=== PATIENT | female | born 1975 | race Caucasian/White ===

== ENCOUNTER → 2021-03-09 14:07 | Outpatient (CLI) | payer OTHER, SELFPAY ==
--- NOTE | 2021-03-09 | DI.MRI.S_ITS ---
PROCEDURE: MR LUMBAR SPINE WO CON INDICATIONS: Radiculopathy, lumbar region TECHNIQUE: Noncontrast sagittal T1 spin echo and T2 fast echo, sagittal STIR, axial T1 and T2 fast spin echo through the lumbar spine. In cases with scoliosis, additional coronal T2 fast spin echo may be performed. COMPARISON: [facility], MR, L-SPINE WITHOUT CONTRAST, 05/13/2014, 16:46. [facility], MR, L-SPINE WITHOUT CONTRAST, 01/06/2018, 8:20. FINDINGS: Image quality: Excellent. Alignment and Curvature: There is normal bony alignment. Convex left curvature of the lumbar spine. Bone Marrow: Marrow is of normal overall signal. No acute vertebral body compression fractures. Spinal Cord: Conus medullaris terminates at the L1 level. Visualized cord demonstrates normal signal and size. Paraspinous Soft Tissues: No paravertebral masses. T12-L1: Normal appearance. L1-L2: Normal appearance. L2-L3: Loss of disc signal. Mild, diffuse disc bulge. No central stenosis. No neural foraminal narrowing. No neural compression. L3-L4: Loss of disc signal. Mild to moderate diffuse disc bulge. Mild bilateral facet hypertrophy. Mild narrowing of the central canal. No neural foraminal narrowing. No neural compression L4-L5: Loss of disc signal. Mild, diffuse disc bulge. Moderate bilateral facet hypertrophy. Mild narrowing of the central canal. Mild bilateral neural foraminal narrowing. No neural compression. L5-S1: Loss of disc signal. Mild, diffuse disc bulge. Mild right moderate left facet hypertrophy. No central stenosis. No neural foraminal narrowing. No neural compression. IMPRESSION: 1. Multilevel degenerative disc disease. 2. Multilevel facet arthropathy. 3. No severe central canal narrowing. 4. No severe neural foraminal narrowing. 5. No neural compression Dictated by: Denise Mauricio MD, PhD on 03/09/2021 at 17:51 Approved by: Denise Mauricio MD, PhD on 03/09/2021 at 17:54
== END ==
PROVIDERS: Family Provider Internal Medicine Rheumatology; PCP Family Medicine; Referring Provider Physical Medicine & Rehabilitation; Visit Provider Physical Medicine & Rehabilitation
DX: M51.16 Intervertebral disc disorders with radiculopathy, lumbar region (principal); M51.17 Intervertebral disc disorders with radiculopathy, lumbosacral region; M47.26 Other spondylosis with radiculopathy, lumbar region; M47.27 Other spondylosis with radiculopathy, lumbosacral region
CPT/HCPCS: 72148

== ENCOUNTER → 2022-04-23 15:09 | Outpatient (CLI) | payer OTHER, SELFPAY ==
[2022-04-23 16:18] LABS: COVID19 -Nasal RAPID Negative (Negative)
== END ==
PROVIDERS: Family Provider Internal Medicine Rheumatology; PCP Family Medicine; Visit Provider Surgery
DX: Z20.822 Contact with and (suspected) exposure to COVID-19 (principal); Z01.812 Encounter for preprocedural laboratory examination
CPT/HCPCS: 87635; C9803

== ENCOUNTER 2022-04-26 12:14 | Day surgery (SDC) | payer OTHER, SELFPAY ==
--- NOTE | 2022-04-26 | PATH_ITS ---
[facility] Accession Number: [id number] . 01 Material submitted: . PART A: duodenum - DUODNEAL PART B: stomach - ANTRUM PART C: rectosigmoid junction - RECTOSIGMOID POLYP . 01 Diagnosis: A. Duodenum, Biopsy: Small bowel mucosa with no diagnostic abnormality. Negative for active inflammation, intraepithelial lymphocytosis, dysplasia, and malignancy. . B. Stomach, Antrum, Biopsy: Antral mucosa with mild chronic gastritis. Negative for Helicobacter by immunohistochemistry. Negative for intestinal metaplasia. Negative for dysplasia and malignancy. . C. Rectosigmoid Colon, Polyp, Biopsy: Hyperplastic polyp with features of mucosal prolapse. Additional levels were examined. Negative for dysplasia and malignancy. [facility] 04/29/2022 1532 Local . 01 Electronically signed: . Luz Maria Muro MD, Pathologist NPI- [id number] . 01 Gross description: . Part A: DUODNEAL: Received in formalin are multiple fragment(s) of olivo, soft tissue measuring 0.1 x 0.1 x 0.1 cm to 0.2 x 0.2 x 0.2 cm submitted entirely in 1 cassette(s) Part B: ANTRUM: Received in formalin is 1 fragment(s) of olivo, soft tissue measuring 0.1 x 0.1 x 0.1 cm submitted entirely in 1 cassette(s) Part C: RECTOSIGMOID POLYP: Received in formalin is 1 fragment(s) of olivo, soft tissue measuring 0.2 x 0.2 x 0.2 cm submitted entirely in 1 cassette(s) /[facility] 04/27/2022 1903 Local . 01 Microscopic: . B. An immunohistochemical stain was performed to evaluate for Helicobacter organisms and is negative. The control stain showed appropriate reactivity. . * This test was developed and its performance characteristics determined by [facility]. It has not been cleared or approved by the U.S. Food and Drug Administration. The FDA has determined that such clearance or approval is not necessary. This test is used for clinical purposes. It should not be regarded as investigational or for research. . 01 Pathologist provided ICD-10: D50.9, K63.5 . 01 CPT . 656400, 765520, 045270, F75793 Specimen Comment: A courtesy copy of this report has been sent to [phone] Performed at: 01 [facility] [address] [place] [address], [place], [place] [id number] MD Wade Briones MD Phone: [phone]
[2022-04-26 12:55] VITALS: BP 160/88; PULSE 80; RESP 16; TEMP 37.1; O2SAT 100; BMI 24.3
[2022-04-26] MEDS: SODIUM CHLORIDE 0.9% 1,000 ML 84 ML IV (13:20)
--- NOTE | 2022-04-26 15:00 | PM.HP.1 ---
History of Present Illness History of Present Illness Date Patient Seen: 04/26/22 Time Patient Seen: 15:00 Chief complaint: SDC Narrative: Iron deficiency anemia Patient History Family & Social History Social History: household members spouse Tobacco & Substance use: Smoking Status Never smoker alcohol intake current alcohol intake frequency holiday/special occasion Substance Use Type does not use Meds Home Medications and Allergies Home Medications Medication Instructions Recorded Confirmed Type buspirone 15 mg tablet 10 mg PO BID ##0 09/16/16 04/26/22 History lorazepam 0.5 mg tablet (Ativan) 0.5 mg PO SEE INSTRUCTIONS #24 tabs 07/06/17 04/26/22 Rx albuterol sulfate 90 mcg/actuation 2 inh inhalation PRN Cough 04/26/22 History aerosol inhaler (ProAir HFA) duloxetine 60 mg capsule,delayed 60 mg PO DAILY 04/26/22 04/26/22 History release eletriptan 20 mg PO PRN Migraine Headache 04/26/22 History fluticasone propionate 230 2 inh inhalation BID 04/26/22 04/26/22 History mcg-salmeterol 21 mcg/actuation HFA inhaler (Advair HFA) lamotrigine 100 mg tablet 200 tab PO BID 04/26/22 04/26/22 History pregabalin 75 mg capsule 1 cap PO DAILY 04/26/22 04/26/22 History topiramate 50 mg tablet (Topamax) 150 mg PO BID 04/26/22 04/26/22 History Allergies Allergy/AdvReac Type Severity Reaction Status Date / Time Sulfa (Sulfonamide Allergy Severe TONGUE Verified 04/26/22 12:54 Antibiotics) SWELLING [SULFA (SULFONAMIDE ANTIBIOTICS)] Review of Systems Review of Systems ROS: Yes All systems reviewed with the patient and are negative except as otherwise documented Exam Vital Signs (past 8 hours): - 04/26/22 12:55 Temperature 98.8 F Pulse Rate 80 Respiratory Rate 16 Blood Pressure 160/88 H Pulse Oximetry 100 Oxygen Delivery Method Room Air Oxygen Delivery Method Room Air Const General: cooperative HENMT Head: normal to inspection Eyes General: appearance normal, both eyes and all related structures Neck Neck: normal visual inspection Chest Chest: normal inspection of the chest Resp Effort & Inspection: normal respiratory effort Cardio Rate: regular rate GI Inspection: normal to inspection Skin General: no rashes or lesions noted Neuro General: patient alert and patient awake Extrem General: normal to inspection and no pedal edema Psych Appearance: grossly normal Assessment & Plan Assessment & Plan narrative: 46-year-old female with iron deficiency anemia. EGD and colonoscopy are therefore pursued today. Time Spent With Patient Critical Care time: I spent a total of [] minutes of critical care time on this patient's care today; this time is exclusive of procedural time.
--- NOTE | 2022-04-26 15:01 | PM.PREOP ---
Pre-operative Note COVID-19 COVID-19 status: Negative Result date/Date tested (Pos, Neg/Pending): 04/23/22 Criteria for continued procedure: Possibility delay results in more complex future surgery or treatment Interval Note History & Physical reviewed/Exam performed by Physician: Yes Changes to H&P: No ASA Class (for procedural sedation): II
--- NOTE | 2022-04-26 15:41 | P.OP.EGD&C_ITS ---
Operative Date/Time/Diagnoses Date of procedure: 04/26/22 Time of procedure: 15:41 Pre-op diagnosis: Iron deficiency anemia Post-op diagnosis: same Procedure & Clinicians Study performed: EGD with biopsies and colonoscopy with cold forceps polypectomy Same procedure as scheduled: Yes Indications: Iron deficiency anemia Surgeon: Isaac March Procedure Notes SCOAP/Timeout: Done Procedure in detail: After the risks and benefits were explained, written and verbal informed consent was obtained. The patient was brought into the procedure room and placed into the left lateral decubitus position. Please see nurse aircraft body repairer notes for sedation details. The scope was introduced into the mouth through the bite block and advanced under direct visualization to the 2nd portion of the duodenum. The scope was slowly withdrawn carefully examining the mucosa for any defects or lesions. Retroflexed views were accomplished in the stomach. The stomach was decompressed, the scope was then removed from the patient who t olerated the procedure well. Patient was then turned around a digital rectal examination accomplished. The scope was introduced into the rectum and advanced to the cecum as identified by the appendiceal orifice and ileocecal valve. The terminal ileum was briefly interrogated. The scope was then slowly withdrawn to carefully examine the mucosa for any defects or lesions. Multiple direct views were made through the dentate line for exclusion of pathology colon was decompressed scope removed from the patient who tolerated the procedure well. Pediatric colonoscope Adequate bowel prep Scope withdrawal time: 8 minutes Sedation minutes: 31 Complications: none Impression: 1. Duodenum: This was visually normal from the bulb through the 2nd portion. Random D2 biopsies were taken for exclusion of sprue. 2. Stomach: No ulcers. No mass lesions no erosions. Mild gastropathy. The antral biopsies that were acquired for exclusion of H pylori I. 3. Esophagus: The squamocolumnar junction correlated with the top of the gastric folds. GE junction was at 45 cm from the incisors. No acute erosive changes no strictures no mass lesions. The esophagus was otherwise unremarkable. 4. Terminal ileum: This was visually normal. 5. Colon: No proctitis. No colitis. Slightly tortuous left colon. Diminutive polyp probably hyperplastic of the rectosigmoid measuring about 5 mm in greatest dimension was removed with cold forceps. Endoscopic diagnosis 1. Mild gastropathy 2. Otherwise visually unremarkable EGD 3. Diminutive rectosigmoid polyp 4. Mildly tortuous left colon Post-procedure Plan for aftercare: 1. Await histopathology. 2. Repeat colonoscopy in 10 years for colon cancer screening. 3. Continue to follow along in GI clinic. Disposition: PACU
[2022-04-26 15:44] VITALS: BP 120/60; PULSE 73; RESP 17; TEMP 37; O2SAT 99
[2022-04-26 15:49] VITALS: BP 129/71; PULSE 68; RESP 18; TEMP 36.6; O2SAT 100
[2022-04-26 15:54] VITALS: BP 139/74; PULSE 74; RESP 20; TEMP 36.6; O2SAT 100
[2022-04-26 16:02] VITALS: BP 137/65; PULSE 67; RESP 19; TEMP 36.8; O2SAT 100
== END 2022-04-26 16:08 | disposition home or self-care (01) ==
PROVIDERS: Family Provider Internal Medicine Rheumatology; PCP Family Medicine; Referring Provider Internal Medicine Gastroenterology; Visit Provider Internal Medicine Gastroenterology
PROC: 0DJ08ZZ Inspection of Upper Intestinal Tract, Via Natural or Artificial Opening Endoscopic (ICD-10-PCS; CPT 43235; principal; 2022-04-26 14:00)
PROC: 0DJD8ZZ Inspection of Lower Intestinal Tract, Via Natural or Artificial Opening Endoscopic (ICD-10-PCS; CPT 45378; 2022-04-26 14:00)
DX: D50.9 Iron deficiency anemia, unspecified (principal); K31.9 Disease of stomach and duodenum, unspecified; K29.50 Unspecified chronic gastritis without bleeding; K63.5 Polyp of colon
CPT/HCPCS: 45380; 43239; J2704; J3010

== ENCOUNTER → 2023-10-20 13:06 | Outpatient (CLI) | payer OTHER, SELFPAY ==
--- NOTE | 2023-10-20 | DI.MRI.S_ITS ---
PROCEDURE: MR LUMBAR SPINE WO CON INDICATIONS: Lumbar Disc Herniation TECHNIQUE: Noncontrast sagittal T1 spin echo and T2 fast echo, sagittal STIR, and T2 fast spin echo through the lumbar spine. In cases with scoliosis, additional coronal T2 fast spin echo may be performed. COMPARISON: [facility], MR, MR LUMBAR SPINE WO CON, 03/09/2021, 14:16. FINDINGS: Image quality: Excellent. Alignment and Curvature: Straightening of the normal lumbar lordosis. Minimal leftward curvature of the lumbar spine. Bone Marrow: Marrow is of normal overall signal. No acute vertebral body compression fractures. Spinal Cord: Conus medullaris terminates at the L1 level. Visualized cord demonstrates normal signal and size. Paraspinous Soft Tissues: No paravertebral masses. T12-L1: Normal appearance. L1-L2: Normal appearance. L2-L3: Disc desiccation and minimal disc bulge. Facet arthropathy. No central canal or neural foraminal stenosis. L3-L4: Disc desiccation and minimal disc bulge. Facet arthropathy. Epidural lipomatosis. Stable mild central canal stenosis. No neural foraminal stenosis. L4-L5: Disc desiccation. Minimal disc bulge. Facet arthropathy. Epidural lipomatosis. Stable mild central canal stenosis and mild bilateral neural foraminal stenosis. L5-S1: Mild facet arthropathy. No central canal or neural foraminal stenosis. IMPRESSION: 1. Multilevel degenerative changes of the lumbar spine are overall not significantly changed compared to prior. 2. Mild central canal stenosis at L3-L4 and L4-5. 3. Mild bilateral neural foraminal stenosis at L4-5. Dictated by: Willy Roland M.D. on 10/20/2023 at 15:26 Approved by: Willy Roland M.D. on 10/20/2023 at 15:34
== END ==
PROVIDERS: Family Provider Internal Medicine Rheumatology; PCP Family Medicine; Referring Provider Physical Medicine & Rehabilitation; Visit Provider Physical Medicine & Rehabilitation
DX: M51.26 Other intervertebral disc displacement, lumbar region (principal); M47.816 Spondylosis without myelopathy or radiculopathy, lumbar region; M47.817 Spondylosis without myelopathy or radiculopathy, lumbosacral region; M48.061 Spinal stenosis, lumbar region without neurogenic claudication
CPT/HCPCS: 72148

== ENCOUNTER → 2023-10-27 13:27 | Outpatient (CLI) | payer OTHER, SELFPAY ==
--- NOTE | 2023-10-27 | DI.MRI.S_ITS ---
PROCEDURE: MR CERVICAL SPINE WO CON INDICATIONS: RADICULOPATHY, CERVICAL REGION TECHNIQUE: Noncontrast sagittal T1 spin echo and T2 fast spin echo, sagittal STIR, foraminal oblique sagittal T2 fast spin echo, and axial gradient echo or T2 fast spin echo through the cervical spine. COMPARISON: None. FINDINGS: Image quality: This examination is limited by involuntary motion artifact. Alignment and Curvature: There is straightening of the normal cervical lordosis. Minimal retrolisthesis can be seen at C5-C6. Bone Marrow: Marrow demonstrates normal overall signal. Spinal Cord: Visualized spinal cord has normal size and signal. No cerebellar tonsillar herniation. Paraspinous Soft Tissues: No paravertebral masses. Prevertebral soft tissues are normal in thickness. C2-C3: The disc height is well-preserved. Loss of disc signal is seen at this level. No significant neural foraminal or central canal narrowing can be seen. C3-C4: The disc height is well-preserved. Loss of disc signal is seen at this level. No significant disc osteophyte complex is seen. There is at least moderate right-sided facet hypertrophy, with mild left facet hypertrophy. There is [id number] right-sided and moderate left-sided neural foraminal narrowing. No central canal narrowing is seen. C4-C5: The disc height is well-preserved. Loss of disc signal is seen at this level. Mild to moderate disc osteophyte complex is seen, which is eccentric to the right, with a mild central/right disc osteophyte protrusion. Mild to moderate facet hypertrophy is seen. There is mild left-sided and minimal right-sided neural foraminal narrowing. Mild central canal narrowing is seen. C5-C6: At least moderate loss of disc height and disc signal can be seen. At least moderate disc osteophyte complex is seen, with a central disc osteophyte protrusion. Uncovertebral joint hypertrophy is seen at this level. Moderate facet joint hypertrophy is seen. There is moderate to severe bilateral neural foraminal narrowing seen, left worse than right. At least moderate central canal narrowing is seen. There is associated mass effect upon the ventral spinal cord. C6-C7: The disc height is well-preserved. Loss of disc signal is seen at this level. A mild degree of generalized disc osteophyte complex is seen. There is at least moderate left-sided and minimal right-sided facet hypertrophy. There is moderate to severe left-sided and no right-sided neural foraminal narrowing. Minimal central canal narrowing is seen. C7-T1: The disc height and disk signal are well-preserved. A mild degree of generalized disc osteophyte complex is seen. Mild facet joint hypertrophy is seen. Mild bilateral neural foraminal narrowing is seen. No central canal narrowing is seen. IMPRESSION: Multiple levels of significant cervical spine degenerative change can be seen, which are overall worst at the C5-C6 level. Dictated by: Reymundo Andersen M.D. on 10/27/2023 at 16:28 Approved by: Reymundo Andersen M.D. on 10/27/2023 at 16:32
== END ==
PROVIDERS: Family Provider Internal Medicine Rheumatology; PCP Family Medicine; Referring Provider Physical Medicine & Rehabilitation; Visit Provider Physical Medicine & Rehabilitation
DX: M47.22 Other spondylosis with radiculopathy, cervical region (principal)
CPT/HCPCS: 72141

== ENCOUNTER → 2024-12-21 13:43 | Outpatient (CLI) | payer OTHER, SELFPAY ==
--- NOTE | 2024-12-21 13:44 | DI.MRI.S_ITS ---
PROCEDURE: MR SHOULDER RT WO CON INDICATIONS: terminal superintendent right shoulder injury TECHNIQUE: Noncontrast oblique coronal T2 fast spin echo with fat saturation, oblique sagittal T1 spin echo and T2 fast spin echo with fat saturation, axial T1 spin echo and T2 fast spin echo with fat saturation through the shoulder. COMPARISON: None. FINDINGS: Image quality: Excellent. Bones: The bone marrow signal is normal. There is no acute fracture or dislocation. Acromioclavicular joint: Minimal osteoarthritis. There is a type 2 acromion. Glenohumeral joint: There is no significant osteoarthritis. There is no significant joint effusion. Labrum: The labrum is normal. Cartilage: There is no significant articular cartilage defect. Subacromial-subdeltoid bursa: There is a small amount of fluid in the subacromial-subdeltoid bursa. Rotator cuff: There is mild supraspinatus tendinosis. There is mild infraspinatus tendinosis. There is mild subscapularis tendinosis. The teres minor tendon is intact. Long head of biceps tendon: The long head of the biceps tendon is present within the bicipital groove and intact. Musculature: There is mildly reduced supraspinatus muscle bulk (9/25). Muscle bulk is otherwise preserved without evidence of denervation or fatty atrophy. Inferior glenohumeral ligaments/Axillary pouch: The axillary pouch is mildly thickened with intermediate signal. Mild pericapsular edema is present (8/13; 10/15). Coracoclavicular and coracoacromial ligaments: The coracoclavicular and coracoacromial ligaments are normal. Other: There is partial loss of the fat signal at the rotator interval. IMPRESSION: 1. Findings suggestive of adhesive capsulitis. 2. Mild supraspinatus tendinosis. 3. Mild infraspinatus tendinosis. 4. Mild subscapularis tendinosis. 5. Mild subacromial-subdeltoid bursitis. Dictated by: Gerard Pearce M.D. on 12/24/2024 at 18:50 Approved by: Gerard Pearce M.D. on 12/24/2024 at 18:55
== END ==
PROVIDERS: Family Provider Internal Medicine Rheumatology; PCP Family Medicine; Referring Provider Family Medicine; Visit Provider Family Medicine
DX: M75.51 Bursitis of right shoulder (principal); M25.511 Pain in right shoulder; M67.911 Unspecified disorder of synovium and tendon, right shoulder
CPT/HCPCS: 73221